=== PATIENT | female | born 1935 | race Caucasian/White ===

== ENCOUNTER 2022-06-05 16:13 | Inpatient (IN) | payer MEDICARE, OTHER ==
[~2022-06-05] VITALS: Ht 154.9 cm; Wt 55.1 kg
[2022-06-05] MEDS ORDERED: MELATONIN 3 MG TABLET PO PRN (16:30)
[2022-06-05] MEDS ORDERED: MILK OF MAGNESIA 400 MG/5 ML 30 ML UDC PO PRN (16:30)
[2022-06-05] MEDS ORDERED: ACETAMINOPHEN 325 MG TABLET PO PRN (16:30)
[2022-06-05] MEDS ORDERED: polyethylene glycoL POWDER 17 GM (MIRALAX) PACK PO PRN (16:30)
[2022-06-05] MEDS ORDERED: ANTACID SUSP 30 ML UDC (MYLANTA) PO PRN (16:30)
[2022-06-05] MEDS ORDERED: ONDANSETRON 4 MG/2 ML (SDV) Z0FRAN IV PRN (16:30)
--- OUTSIDE RECORDS SUMMARY | 2022-06-05 17:51 | XMS REPORT | Clinical Summary ---
Author Author [facility] Organization [facility] Address Unknown Phone Unavailable Care Team Providers Care Plant Safety Leader Name Role Phone PCP Unavailable Allergies Comments Active Allergy Reactions Severity Noted Date Niacin Preparations 12/06/2015 Penicillins Rash Low 12/06/2015 Medications End Date Status Medication Sig Dispensed Refills Start Date Active alendronate (FOSAMAX) 70 Take 1 tablet 12 tablet 3 MG tabletIndications: (70 mg total) 7 Osteopenia by mouth every 7 (seven) days. Take pill first thing in the morning with a full glass of water. 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, unspecified laterality (HCC) Active pravastatin (PRAVACHOL) TAKE 1 TABLET 90 tablet 3 20 MG tabletIndications: DAILY 8 Hyperlipidemia, unspecified hyperlipidemia type Active warfarin (COUMADIN) 5 MG Take 1 tablet 12 tablet 0 tabletIndications: Long once a week 9 term current use of anticoagulant therapy Active Problems Problem Noted Date Interstitial fibrosis 06/04/2017 Overview: [place] to be postinflammatory, monitored by separator operator shellfish meats at Pulmonary embolism 12/02/2016 Osteopenia 07/05/2016 intermediate designer current use of anticoagulant therapy 12/18 Overview: IMO Replacement Update Hyperlipidemia 12/09/2015 Deep venous thrombosis 12/09/2015 Overview: Right lower extremity DVT 2 , left lower extremity DVT 1 Impaired fasting glucose 12/09/2015 Allergic rhinitis 12/09/2015 Immunizations Name Administration Dates Next Due Pneumococcal Conjugate 07/09/2015 13-Valent Pneumococcal 01/24/2011 Polysaccharide 23-Valent Zoster,live 12/07/2016 Family History Medical History Relation Name Comments Diabetes Brother Hyperlipidemia Brother Hypertension Brother Diabetes Father Relation Name Status Comments Brother Father Social History Date Tobacco Use Types Packs/Day Years Used Smoking Tobacco: Never Smokeless Tobacco: Never Comments Alcohol Use Standard Drinks/Week No 0 (1 standard drink = 0.6 o z pure alcohol) Sex Assigned at Date Recorded Not on file Last Filed Vital Signs Reading Time Taken Comments Vital Sign 120/76 06/04/2017 9:53 AM LABEL STAMPER Blood Pressure 82 06/04/2017 9:53 AM LABEL STAMPER Pulse 36.6 C (97.9 F) 06/04/2017 9:53 AM LABEL STAMPER Temperature 18 12/02/2016 1:09 PM CDT Respiratory Rate 95% 06/04/2017 9:53 AM LABEL STAMPER Oxygen Saturation - - Inhaled Oxygen Concentration 64 kg (141 lb) 06/04/2017 9:53 AM LABEL STAMPER Weight 154.9 cm (5' 1") 06/04/2017 9:53 AM LABEL STAMPER Height 26.64 06/04/2017 9:53 AM LABEL STAMPER Body Mass Index Plan of Treatment Health Maintenance Due Date Last Done Comments Td/Tdap# 1935 COVID-19 Vaccine (#1) 06/28/1936 Zoster Vaccine# (2 of 3) 02/01/2017 12/07/2016 Depression Screening 05/05/2017 05/05/2016 PHQ-9 # Fall Risk Assessment # 06/04/2018 06/04/2017 Osteoporosis Screening 07/03/2018 07/03/2016, 07/03/2016 Influenza Vaccine (#1) 2022 02/09/2017, 01/09/2016 Advance Care Planning 04/26/2022 Conversation# Medicare Annual Wellness 04/26/2022 06/04/2017, 06/04/2017, 06/04/2017, Additional history exists Social Determinants of 04/26/2022 Health# Pneumococcal Vaccine: 65+ Completed 07/09/2015, Years 01/24/2011 Results Not on filefrom Last 3 Months Insurance Type Payer Benefit Subscriber ID Effective Phone Address Plan / Dates Group MEDICARE REPLACEMENT PLAN BC OUT OF [id number] 2015-P [phone] [id number] [place] [address] Loren Maria Personal/F Self [id number] [place]) [place] [id number] Loren Maria Personal/F Self 1935 [id number] [place] ([place]) [place] [id number]
--- OUTSIDE RECORDS SUMMARY | 2022-06-05 17:51 | XMS REPORT | Clinical Summary ---
Author Author [facility] Organization [facility] Address Unknown Phone Unavailable Care Team Providers Care Boiler Fitter Name Role Phone Valentino Guzman MD Unavailable Unavailable Unknown, Unknown Unavailable Unavailable Jr Villagomez MD Unavailable Colten Isabel MD PCP Source Comments Some departments are not documenting in the electronic medical record. If you d o not see the information that you expected, contact Release of Information in [facility] Information Management department at [phone] for further assistan ce in locating additional records.[facility] Allergies Comments Active Allergy Reactions Severity Noted Date Aspirin EDEMA Medium 03/04/2015 Niacin REDNESS, Medium 03/04/2015 EDEMA Medications End Date Status Medication Sig Dispensed Refills Start Date Active warfarin (COUMADIN) 3 mg Take 3 mg by 0 tablet mouth daily. 5mg 3day week 3mg 2days week Active pravastatin (PRAVACHOL) Take 20 mg by 0 20 mg tablet mouth daily. Active cyanocobalamin (VITAMIN Inject 1,000 0 B-12, RUBRAMIN) 1,000 mcg to mcg/mL injection area(s) as directed every 30 days. Active ipratropium (ATROVENT) Apply 2 30 mL 11 0.03 % nasal spray sprays to 8 each nostril as directed every 12 hours as needed. Active fluticasone (FLONASE Apply two 48 g 3 05/11 ALLERGY RELIEF) 50 sprays to 9 mcg/actuation nasal spray each nostril as directed daily. Shake bottle gently before using. Active famotidine (PEPCID) 40 mg Take one 180 tablet 0 tabletIndications: GERD tablet by 1 mouth daily. Indications: GERD Active azelastine (ASTELIN) 137 Apply two 30 mL 3 1 0/26/202 mcg (0.1 %) nasal sprays to 1 sprayIndications: each nostril Post-nasal drainage as directed twice daily. Use in each nostril as directed Active albuterol sulfate (PROAIR Inhale two 8.5 g 11 HFA) 90 mcg/actuation HFA puffs by 1 aerosol mouth into inhalerIndications: ILD the lungs (interstitial lung every 6 hours disease) ([facility]) as needed for Wheezing or Shortness of Breath. Shake well before use. Active Problems Problem Noted Date Chronic cough 02/19/2021 Overview: Onset post-COVID Last Assessment & Plan: Formatting of t his note might be different from the original. - persistent sinus drainage with clear sputum production - continue Flonase and Astelin twice da kasey - send to ENT for further evaluation of post-nasal drainage - see ILD Pseudophakia, right eye 07/09/2016 Overview: Phaco/IOL OD ASC 07/09/2015 Last Assessment & Plan: Formatting of t his note is different from the original. Good vision and clinical appearance. Gi ve MRx. 3 months. Next Visit: MRx x OCT Nerve OCT Mac IOP x Pach Dilate x Glare B-scan HVF Stereo Disc Photos Pseudophakia of left eye 06/18/2016 Overview: [facility] - 06/17/16 - PCB00 Last Assessment & Plan: Formatting of t his note might be different from the original. Good vision and clinical appearance. D/ C shield and restrictions. Decrease prenisolone to bid. Scheduled for phaco /IOL OD 2 weeks. Reviewed procedure and risks. She understands and desires procedure. ILD (interstitial lung disease) 04/24/2015 Last Assessment & Plan: Formatting of t his note might be different from the original. 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 VIsually significant OS>OD, BAT OS 20/1 250 today Discussed risks and benefits of surgery with the patient who would like to proceed. We will schedule for OS first follow by OD. Distance target Rec: Phaco/IOL OS first topical MAC. Re viewed procedure and risks including loss of eye, loss of vision, IOL complication, inflammation and retinal swelling. She understands and d esires procedure. Surgical History Surgery Date Site/Laterality Comments VENA CAVA FILTER PLACEMENT ANKLE FRACTURE TX HX CATARACT REMOVAL 07/11/16 Right HX CATARACT REMOVAL 06/17/16 Left Medical History Medical History Date Comments High cholesterol H/O blood clots Pulmonary fibrosis (HCC) Pneumonia Seasonal allergic reaction On supplemental oxygen therapy Deep vein thrombosis (HCC) Family History Medical History Relation Name Comments COPD Brother 1 Cancer Brother 1 Pulmonary Fibrosis Brother 1 Strabismus Brother 1 Cancer Brother 2 Diabetes Brother 3 Blood Clots Mother Amblyopia Neg Hx Autoimmune Disease Neg Hx Blindness Neg Hx Cataract Neg Hx Coronary Artery Disease Neg Hx Glaucoma Neg Hx Hypertension Neg Hx Macular Degen Neg Hx Neurologic Disorder Neg Hx Retinal Detachment Neg Hx Stroke Neg Hx Thyroid Disease Neg Hx Relation Name Status Comments Brother 1 Brother 2 Brother 3 Mother Social History Date Tobacco Use Types Packs/Day Years Used Smoking Tobacco: Never Smokeless Tobacco: Never Tobacco Cessation: Counseling Given: Yes Comments Alcohol Use Standard Drinks/Week No 0 (1 standard drink = 0.6 o z pure alcohol) Sex Assigned at Date Recorded Not on file Obstetrics History Last Filed Vital Signs Reading Time Taken Comments Vital Sign 135/66 01/03/2021 8:36 AM CDT Blood Pressure 74 01/03/2021 8:36 AM CDT Pulse 36.9 C (98.4 F) 05/11/2018 10:59 AM VIDEO MACHINES MECHANIC Temperature 18 01/03/2021 8:36 AM CDT Respiratory Rate 94% 01/03/2021 8:36 AM CDT Oxygen Saturation - - Inhaled Oxygen Concentration 54.4 kg (120 lb) 05/28/2021 9:38 AM VIDEO MACHINES MECHANIC Weight 154.9 cm (5' 1") 05/28/2021 9:38 AM VIDEO MACHINES MECHANIC Height 22.67 05/28/2021 9:38 AM VIDEO MACHINES MECHANIC Body Mass Index Plan of Treatment Health Maintenance Due Date Last Done Comments MEDICARE ANNUAL WELLNESS 1935 VISIT DTAP/TDAP VACCINES (1 - 12/29/1953 Tdap) PHYSICAL (COMPREHENSIVE) 12/29/1953 EXAM OSTEOPOROSIS 12/29/2000 SCREENING/MONITORING COVID-19 VACCINE (4 - 04/21/2021 02/24/2021, Booster for Moderna 07/12/2020, series) 06/14/2020 INFLUENZA VACCINE (#1) 2021 ADVANCED CARE PLANNING 04/26/2022 DISCUSSION AND DOCUMENTATION DEPRESSION SCREENING 04/26/2022 05/28/2021 PNEUMOCOCCAL VACCINE Completed 07/09/2015, 01/24/2011 SHINGLES RECOMBINANT Completed 03/11/2018, VACCINE 10/26/2017, 12/07/2016 Results Not on filefrom Last 3 Months Insurance Type Payer Benefit Subscriber ID Effective Phone Address Plan / Dates Group Medicare BCBS ALLIE MEDICARE BCBS [id number] 2016- [phone] [address] MEDICARE Present [id number] [facility] ([place] [id number] [phone] Care Teams Start Date End Date Boiler Fitter Relationship Specialty 11/28/20 Colten Isabel MD PCP - General Internal [id number] [facility] [address] [place] [address] 03/04/15 Valentino Guzman MD Ophthalmolog [address] [place] [address] 04/01/15 Unknown, [place], 04/24/15 Jr Villagomez MD Pulmonary [address] [facility] [address] [place] [id number]
[2022-06-05 20:00] VITALS: BP 97/59
[2022-06-05] MEDS ORDERED: warFARin 3 MG (COUMADIN) TAB PO NR (20:00)
[2022-06-05 22:06] VITALS: BP 97/59
[2022-06-05] MEDS ORDERED: RT-ALBUTEROL SULF 2.5 MG/3 ML PRE-MIX VIAL INH PRN (22:30)
[2022-06-06] VITALS (7 sets, daily range): BP systolic 90–111; BP diastolic 59–68
[2022-06-06] MEDS: RT-ALBUTEROL SULF 2.5 MG/3 ML PRE-MIX VIAL INH SCH ×6 (02:31→21:56)
[2022-06-06 04:53] LABS: HEMATOCRIT 47 % (35-52); HEMOGLOBIN 15.2 g/dL (11.5-16.0); MEAN CORPUSCULAR HEMOGLOBIN 32 pg (25-34); MEAN CORPUSCULAR HGB CONC 33 g/dL (32-36); MEAN CORPUSCULAR VOLUME 98 fL (80-99); MEAN PLATELET VOLUME 10.1 fL (9.0-12.2); PLATELET COUNT 194 10^3/uL (130-400); WHITE BLOOD COUNT 6.4 10^3/uL (4.3-11.0)
[2022-06-06 05:05] LABS: INR 2.2 (0.8-1.4); PROTHROMBIN TIME PATIENT 24.8 SEC (12.2-14.7)
[2022-06-06 05:11] LABS: CALCIUM 8.8 MG/DL (8.5-10.1)
[2022-06-06 05:15] LABS: CREATININE SERUM 1.39 MG/DL (0.60-1.30)
[2022-06-06] MEDS: FUROSEMIDE 40 MG/4 ML INJ (LASIX) IVP SCH (06:54)
--- NOTE | 2022-06-06 08:46 | Physical Therapy Evaluation ---
PT Evaluation-General Medical Diagnosis Admission Date Jun 05, 2022 at 17:45 Medical Diagnosis: SOB and weakness Onset Date: Jun 05, 2022 Therapy Diagnosis Therapy Diagnosis: impaired mobility, strength Precautions Precautions/Isolations: Standard Precautions Referral Physician: [place] Reason for Referral: Evaluation/Treatment Medical History Reviewed History: Yes Social History Home: Single Level Current Living Status: Spouse Entry Into Home: Level Entry Prior Prior Level of Function SCALE: Activities may be completed with or without assistive devices. 6-Lxstzylfyw-vfhzhao completes the activity by him/herself with no assistance from a helper. 5-Set-up or Clean-up Assistance-helper sets up or cleans up; patient completes activity. Stuart assists only prior to or following the activity. 4-Supervision or Touching Assistance-helper provides verbal cues and/or touching/steadying and/or contact guard assistance as patient completes activity. Assistance may be provided throughout the activity or intermittently. 3-Partial/Moderate Assistance-helper does LESS THAN HALF the effort. Stuart lifts, holds or supports trunk or limbs, but provides less than half the effort. 2-Substantial/Maximal Assistance-helper does MORE THAN HALF the effort. Stuart lifts or holds trunk or limbs and provides more than half the effort. 2-Nwsqqgyic-ioibnw does ALL the effort. Patient does none of the effort to complete the activity. Or, the assistance of 2 or more helpers is required for the patient to complete the activity. If activity was not attempted, code reason: 7-Patient Refused. 9-Not Applicable-not attempted and the patient did not perform the activity be fore the current illness, exacerbation or injury. 10-Not Attempted due to Environmental Limitations-(lack of equipment, weather restraints, etc.). 88-Not Attempted due to Medical Conditions or Safety Concerns. Bed Mobility: 6 Transfers (B,C,W/C): 6 Gait: 6 Indoor Mobility (Ambulation): Independent Prior Devices Use: Walker Patient states she was only walking 10-15' with a rolling walker with some di fficulty PT Evaluation-Current Subjective Patient in bed pre tx, agrees to PT, has no complaints of pain at rest. Pt/Family Goals to be independent at home Objective Patient Orientation: Person, Place, Situation Attachments: Oxygen ROM/Strength ROM Lower Extremities WNL Strength Lower Extremities LLE (hip flexion 3+/5, knee flexion 4/5, knee extension 4/5, dorsiflexion 4/5), RLE (hip flexion 3+/5, knee flexion 4/5, knee extension 4/5, dorsiflexion 4/5) Sensory Vision: Functional Hearing: Functional Sensation Right Lower Extremit: Intact Sensation Left Lower Extremity: Intact Transfers Roll Left to Right (QC): 6 Lying to Sitting/Side of Bed(Q: 6 Sit to Stand (QC): 4 Chair/Bci-ut-Andvb Xfer(QC): 4 Gait Distance: 5' Gait Assistive Device: FWW Comments/Gait Description CGA, slightly unsteady Treatment seated BLE exercises x20 (AP, LAQ) Assessment/Needs Patient in bedside chair post tx, set up for breakfast, has nurse call, phone, tray. Patient has impaired mobility and strength. O2 was unreadable, nurse notified. Rehab Potential: Fair PT Usp Goals Usp Goals PT Usp Goals Time Frame: Jun 13, 2022 Roll Left & Right (QC): 6 Sit to Lying (QC): 6 Lying-Sitting on Side/Bed(QC): 6 Sit to Stand (QC): 6 Chair/Byp-js-Bfrhn Xfer(QC): 6 Walk 10 feet (QC): 4 PT Plan Problem List Problem List: Activity Tolerance, Functional Strength, Safety, Balance, Gait, Transfer, Bed Mobility, ROM Treatment/Plan Treatment Plan: Continue Plan of Care Treatment Plan: Education, Functional Activity Henry, Functional Strength, Gait, Safety, Therapeutic Exercise, Transfers Treatment Duration: Jun 13, 2022 Frequency: 6 times per week Estimated Hrs Per Day: .25 hour per day Patient and/or Family Agrees t: Yes Safety Risks/Education Patient Education: Gait Training, Transfer Techniques, Correct Positioning, Safety Issues Teaching Recipient: Patient Teaching Methods: Demonstration, Discussion Response to Teaching: Reinforcement Needed Discharge Recommendations Plan Patient will perform bed mobility and transfer training, balance and endurance training, functional strengthening, gait training, and education. Therapy Discharge Recommendati: Home & Family, Post Acute PT Time Time In: 819 Time Out: 832 DATE: Jun 06, 2022 Total Billed Treatment Time: 13 Total Billed Treatment 1 visit VAMSI OLVERA PT Jun 06, 2022 08:46
--- NOTE | 2022-06-06 09:57 | History & Physical-Hospitalist ---
History of Present Illness HPI/Chief Complaint Patient is an 86-year-old female with past history of pulmonary fibrosis, multiple DVTs with IVC filter placement, long COVID who presented to the emergency department due to shortness of breath. She reports she had COVID 2 years ago and has suffered with respiratory symptoms since then which complicated her pulmonary fibrosis. She wears 4 L of oxygen at baseline. Over the past couple of weeks that she has noticed lower extremity edema and worsening shortness of breath. She decided to seek evaluation in the emergency room yesterday as it was not getting better. She was found to have an elevated BNP and findings concerning for CHF. She denies any history of CHF. She was admitted here for further cardiac work-up. She states that she has urinated quite a bit since receiving Lasix in the ER yesterday and just received Lasix this morning and feels like she has to urinate again. Source: patient Date Seen 06/06/22 Time Seen by a Provider: 08:30 Attending Physician PCP Admitting Physician: Kimmy Maurer MD Attending Physician: Kimmy Maurer MD Referring Physician Date of Admission Jun 05, 2022 at 17:45 Home Medications & Allergies Home Medications Reviewed patient Home Medication Reconciliation performed by pharmacy medication reconciliations in flight technician and/or nursing. Patients Allergies have been reviewed. Allergies Allergies Coded Allergies Penicillins (Verified Allergy, Unknown, 06/05/22) Past Fuvlqst-Ftctzt-Ygnkrt Hx Patient Social History Marrital Status: Employed/Student: retired Tobacco Use?: No Use of E-Cig and/or Vaping dev: No Substance use?: No Alcohol Use?: No Pt feels they are or have been: No Immunizations Up To Date Date of Influenza Vaccine: Jan 24, 2022 Current Status status: No Advance Directives: Yes Advance Directive Location: Home Communicates: Verbally Primary Language: Tongan Preferred Spoken Language: Tongan Is interpretation needed?: No Sensory deficits: Vision impairment Implanted or Applied Medical D: Orthopedic hardware Past Medical History Pulmonary Fibrosis long covid, DVTs on chronic anticoagulation, and IVC filter Family Medical History Reviewed Nursing Family Hx No Pertinent Family Hx Review of Systems Constitutional: see HPI Physical Exam Physical Exam Vital Signs Vital Signs - First Documented 06/05/22 06/05/22 06/05/22 06/05/22 18:28 19:00 20:00 22:06 Temp 35.5 Pulse 80 Resp 27 B/P (MAP) 97/59 (72) Pulse Ox 92 O2 Delivery Nasal Cannula O2 Flow Rate 4.00 FiO2 40 Capillary Refill : Height, Weight, BMI Height: '" Weight: lbs. oz. kg; 24.92 BMI Method: General Appearance: No Apparent Distress Respiratory: No Accessory Muscle Use; No Crackles, No Rhonci, No Wheezing Cardiovascular: Regular Rate, Rhythm, No Murmur Gastrointestinal: Normal Bowel Sounds, Non Tender, Soft Extremity: Pedal Edema, Swelling Neurologic/Psychiatric: Alert, Oriented x3 Results Results/Procedures Labs Laboratory Tests 06/06/22 04:36 Patient resulted labs reviewed. Assessment/Plan Admission Diagnosis Preseumed new onset HF Admission Status: Inpatient Order (span 2 midnights) Reason for Inpatient Admission: see below Assessment and Plan Presumed new onset HF Elevated troponin- likely Type II PA lung extremity edema and worsening SOB Continue lasix echo ordered cardiology consulted Monitor I/Os Low Na diet Pulmonary fibrosis Long Covid Chronic Respiratory Failure MAT protocol Does not use inhalers at home Consider steroids if no improvement with this dose of lasix On 4lpm current Chronic anticoagulatioin H/o of DVT INR 2.2 Continue Warfarin DVT ppx: Warfarin KIMMY MAURER MD Jun 06, 2022 9:57 am
--- NOTE | 2022-06-06 10:54 | Consultation-Cardiology ---
HPI-Cardiology Cardiology Consultation: Date of Consultation 06/06/22 Time Seen by a Provider: 10:20 Date of Admission Attending Physician Admitting Physician Admitting Physician: Angelica Maurer MD Attending Physician: Angelica Maurer MD Consulting Physician SAVANA GONZALEZ MD, MA, FACP, FACC, FSCAI, CCDS Physician requesting consult: Dr. Maurer HPI: Chief Complaint: Reason for Card consult: Shortness of breath, elevated BNP 86 yo woman with chronic shortness of breath that has been much worse for the past 2 years after she contracted COVID-19 in 2020. She gets short of breath with mild exertion. This has been worse in the last several days and she had also been noticing leg swelling on both sides. She decided to come in to the hosp and was admitted to Dr Maurer at this hosp. She reports gen fatigue and malaise and weakness. She does not report focal weakness or seizure. She denies cp. She denies palp or syncope Review of Systems-Cardiology Review of Systems Constitutional: As described under HPI Eyes: No vision change Ears/Nose/Throat: No ear discharge, No nasal drainage, No recent hearing loss Respiratory: As described under HPI Cardiovascular: As described under HPI Gastrointestinal: No diarrhea, No nausea, No vomiting Genitourinary: No dysuria, No hematuria, No urine frequency changes Musculoskeletal: back pain (chronic), joint pain (chronic) Skin: No rash, No ulcerations Psychiatric/Neurological: As described under HPI Hematologic: No bleeding abnormalities [id number]-[id number] Hx Patient Social History Marrital Status: Employed/Student: retired Have you traveled recently?: No Alcohol Use?: No Pt feels they are or have been: No Immunizations Up To Date Date of Influenza Vaccine: Jan 24, 2022 Past Medical History PMH As described under Assessment. Family Medical History Family Medical History: She does not report fam h/o early CAD She reports fam h/o lung problems, including emphysema; doesn't know details Allergies and Home Medications Allergies Coded Allergies: Penicillins (Verified Allergy, Unknown, 06/05/22) Patient Home Medication List Home Medication List Reviewed: Yes Physical Exam-Cardiology Physical Exam Vital Signs/I&O 06/06/22 06/06/22 06/06/22 06/06/22 00:00 01:00 02:30 02:31 Pulse 72 70 Resp 22 B/P (MAP) 111/68 (82) Pulse Ox 95 95 O2 Delivery Nasal Cannula Nasal Cannula High Flow N/C O2 Flow Rate 5.00 4.00 5.00 06/06/22 06/06/22 06/06/22 06/06/22 02:35 06:46 07:00 07:41 Temp 36.0 36.4 Pulse 69 72 71 Resp 22 24 B/P (MAP) 102/61 (75) 99/61 (74) Pulse Ox 96 93 O2 Delivery High Flow N/C Nasal Cannula Nasal Cannula O2 Flow Rate 4.00 4.00 4.00 06/06/22 08:03 Pulse Ox 93 O2 Delivery High Flow N/C O2 Flow Rate 4.00 06/06/22 00:00 Intake Total 200 ml Output Total 300 ml Balance -100 ml Capillary Refill : Constitutional: AAO x 3, well-developed, other (thin and frail) HEENT: PERRL, EOMI, hearing is well preserved Neck: carotid pulses are 2 + bilaterally, with good upstrokes Respiratory: No accessory muscle use; chest expansion is symmetric, chest is bilaterally symmetric, other (fair air entry bilaterally) Cardiovascular: regular rate-rhythm, S1 and S2, systolic murmur (soft KAPIL at card base) Gastrointestinal: No tender; soft; No guarding, No rebound; audible bowel sounds Extremities: No clubbing, No cyanosis, No significant edema Neurologic/Psychiatric: oriented x 3, other (moves all limbs equally) Skin: normal color, warm/dry; No rash, No ulcerations Data Review Labs Laboratory Tests 06/05/22 18:50: Troponin I 0.030H 06/06/22 04:36: White Blood Count 6.4, Red Blood Count 4.79, Hemoglobin 15.2, Hematocrit 47, Mean Corpuscular Volume 98, Mean Corpuscular Hemoglobin 32, Mean Corpuscular Hemoglobin Concent 33, Red Cell Distribution Width 13.6, Platelet Count 194, Mean Platelet Volume 10.1, Prothrombin Time 24.8H, INR Comment 2.2H, Sodium Level 140, Potassium Level 5.0, Chloride Level 106, Carbon Dioxide Level 20L, Anion Gap 14, Blood Urea Nitrogen 24H, Creatinine 1.39H, Estimat Glomerular Filtration Rate 37, BUN/Creatinine Ratio 17, Glucose Level 161H, Calcium Level 8.8 Laboratory Tests 06/06/22 04:36 A/P-Cardiology Assessment/Admission Diagnosis Shortness of breath, multifactorial - CHF of undetermined etiology - Ch resp failure due to pulm fibrosis / emphysema; ?acute exac due to lower resp tract infection - Long Covid H/o PAF - on warfarin anticoag. INR therapeutic (2.2) on 06/06/22 Minimal troponin elev - likely type 2 SC due to transient hypoxia Discussion and Recomendations * Diuretics * Echo to eval EF and wall motion and valve function * Monitor labs * Pulm / Covid issues being managed by the Hosp SAVANA Hernandez MD FACP FACC CCDS Jun 06, 2022 10:54
[2022-06-06] MEDS ORDERED: ATEN50TA PO (13:06)
[2022-06-06] MEDS ORDERED: WARF-48 PO (13:10)
[2022-06-06] MEDS ORDERED: WARF3TAB56 PO (13:10)
[2022-06-06] MEDS ORDERED: PRAVASTATIN 20 MG PO (13:10)
[2022-06-06] MEDS: warFARin 3 MG (COUMADIN) TAB PO SCH (18:30)
[2022-06-06] MEDS: AtorvaSTATin TABLET 10 MG TABLET PO SCH (22:09)
[2022-06-07] MEDS: RT-ALBUTEROL SULF 2.5 MG/3 ML PRE-MIX VIAL INH SCH ×6 (03:29→22:24)
[2022-06-07 04:00] VITALS: BP 101/62
[2022-06-07 04:22] LABS: HEMATOCRIT 41 % (35-52); HEMOGLOBIN 13.5 g/dL (11.5-16.0); MEAN CORPUSCULAR HEMOGLOBIN 32 pg (25-34); MEAN CORPUSCULAR HGB CONC 33 g/dL (32-36); MEAN CORPUSCULAR VOLUME 99 fL (80-99); MEAN PLATELET VOLUME 10.1 fL (9.0-12.2); PLATELET COUNT 181 10^3/uL (130-400); WHITE BLOOD COUNT 11.3 10^3/uL (4.3-11.0)
[2022-06-07 04:35] LABS: POTASSIUM 4.7 MMOL/L (3.6-5.0)
[2022-06-07 04:36] LABS: CALCIUM 8.7 MG/DL (8.5-10.1)
[2022-06-07 04:40] LABS: CREATININE SERUM 1.44 MG/DL (0.60-1.30)
[2022-06-07 07:51] VITALS: BP 114/69
--- NOTE | 2022-06-07 08:35 | Progress Note - Hospitalist ---
Subjective HPI/CC On Admission Date Seen by Provider: Jun 07, 2022 Patient is an 86-year-old female with past history of pulmonary fibrosis, multiple DVTs with IVC filter placement, long COVID who presented to the emergency department due to shortness of breath. She reports she had COVID 2 years ago and has suffered with respiratory symptoms since then which complicated her pulmonary fibrosis. She wears 4 L of oxygen at baseline. Over the past couple of weeks that she has noticed lower extremity edema and worsening shortness of breath. She decided to seek evaluation in the emergency room yesterday as it was not getting better. She was found to have an elevated BNP and findings concerning for CHF. She denies any history of CHF. She was admitted here for further cardiac work-up. She states that she has urinated quite a bit since receiving Lasix in the ER yesterday and just received Lasix this morning and feels like she has to urinate again. Subjective/Events-last exam Pt reports feeling about the same as yesterday. No specific complaints. Some improvement in CRISTI but still dyspneic. Discussed echo results and plan for CT chest been renal function amenable to contrast. Objective Exam Vital Signs Vital Signs Date Time Temp Pulse Resp B/P (MAP) Pulse Ox O2 Delivery O2 Flow Rate FiO2 06/07/22 07:51 35.7 78 26 114/69 (84) 92 High Flow N/C 5.00 06/05/22 22:06 40 Capillary Refill : General Appearance: No Apparent Distress, Chronically ill, Thin Respiratory: Lungs Clear, No Accessory Muscle Use Cardiovascular: Regular Rate, Rhythm, No Murmur Extremity: Swelling (nonpitting bilateral lower extremities) Neurologic/Psychiatric: Alert, Oriented x3 Results/Procedures Lab Laboratory Tests 06/07/22 04:15 Patient resulted labs reviewed. Assessment/Plan Assessment and Plan Assess & Plan/Chief Complaint pHTN Elevated troponin- likely Type II DC HLD Echo reveals PA pressure of [address] chest in AM cardiology consulted, appreciate recs Monitor I/Os Low Na diet Pulm consult in AM Pulmonary fibrosis Long Covid Chronic Respiratory Failure MAT protocol Does not use inhalers at home On 5lpm currently, up from baseline of 4lpm Will add solumedrol today and monitor response Chronic anticoagulatioin H/o of DVT INR therapeutic Continue Warfarin DVT ppx: Warfarin KIMMY HUTCHINS MD Jun 07, 2022 08:35
[2022-06-07 12:08] VITALS: BP 110/66
[2022-06-07] MEDS: methylPREDNISolone 125 MG (Solu-MEDROL) VIAL IVP SCH (12:08)
--- NOTE | 2022-06-07 13:44 | Progress Note - Cardiology ---
Cardiology SOAP Progress Note Subjective: Shortness of breath modestly improved but still present Gen weakness and malaise unchanged No focal weakness No cp or palp or syncope No n/v/d Objective: I&O/Vital Signs 06/07/22 06/07/22 06/07/22 06/07/22 04:00 07:05 07:51 08:00 Temp 36.2 35.7 Pulse 64 73 78 Resp 23 26 B/P (MAP) 101/62 (75) 114/69 (84) Pulse Ox 95 92 94 O2 Delivery High Flow N/C High Flow N/C Nasal Cannula O2 Flow Rate 5.00 5.00 5.00 06/07/22 06/07/22 06/07/22 10:17 12:08 13:07 Temp 36.4 Pulse 82 86 Resp 23 B/P (MAP) 110/66 (81) Pulse Ox 94 92 O2 Delivery Nasal Cannula High Flow N/C O2 Flow Rate 5.00 5.00 06/07/22 00:00 Intake Total 1297 ml Balance 1297 ml Constitutional: AAO x 3, well-developed, other (thin and frail) Respiratory: No accessory muscle use; chest expansion is symmetric, chest is bilaterally symmetric, other (fair air entry bilaterally) Cardiovascular: regular rate-rhythm, S1 and S2, systolic murmur (soft KAPIL at card base) Gastrointestional: No tender; soft; No guarding, No rebound; audible bowel sounds Extremities: No clubbing, No cyanosis, No significant edema Neurologic/Psychiatric: oriented x 3, other (moves all limbs equally) Skin: normal color, warm/dry; No rash, No ulcerations Results/Procedures: Labs Laboratory Tests 06/07/22 04:15: White Blood Count 11.3H, Red Blood Count 4.18, Hemoglobin 13.5, Hematocrit 41, Mean Corpuscular Volume 99, Mean Corpuscular Hemoglobin 32, Mean Corpuscular Hemoglobin Concent 33, Red Cell Distribution Width 13.8, Platelet Count 181, Mean Platelet Volume 10.1, Sodium Level 142, Potassium Level 4.7, Chloride Level 108H, Carbon Dioxide Level 22, Anion Gap 12, Blood Urea Nitrogen 36H, Creatinine 1.44H, Estimat Glomerular Filtration Rate 35, BUN/Creatinine Ratio 25, Glucose Level 150H, Calcium Level 8.7 Laboratory Tests 06/06/22 04:36 06/07/22 04:15 A/P: Assessment: Shortness of breath, multifactorial - Cor pulmonale and severe pulmonary hypertension of undetermined etiology - Ch resp failure due to pulm fibrosis / emphysema; ?acute exac due to lower resp tract infection - Long Covid Echo on 06/06/22: LVEF 70-75%, marked enlargement of RV with evidence of RV pressure and volume overload, severe pulm HTN with PASP 85-90 mmHg H/o PAF - on warfarin anticoag. INR therapeutic (2.2) on 06/06/22 Minimal troponin elev - likely type 2 NH due to transient hypoxia Plan: * I called Dr Maurer, patient's hospitalist, and have recommended a w/u for PE and other w/u for pulm htn and cor pummonale. Dr Maurer managing. * Monitor labs SAVANA GONZALEZ MD FACP [facility] CCDS Jun 07, 2022 13:44
[2022-06-07 15:39] VITALS: BP 104/62
[2022-06-07 20:00] VITALS: BP 101/61
[2022-06-07] MEDS: AtorvaSTATin TABLET 10 MG TABLET PO SCH (20:50)
[2022-06-07] MEDS: warFARin 3 MG (COUMADIN) TAB PO SCH (20:50)
[2022-06-07 23:19] VITALS: BP 101/61
[2022-06-08] VITALS (7 sets, daily range): BP systolic 93–121; BP diastolic 55–78
[2022-06-08] MEDS: methylPREDNISolone 125 MG (Solu-MEDROL) VIAL IVP SCH ×5 (00:07→23:31)
[2022-06-08] MEDS: RT-ALBUTEROL SULF 2.5 MG/3 ML PRE-MIX VIAL INH SCH ×5 (02:34→21:53)
[2022-06-08 05:12] LABS: HEMATOCRIT 43 % (35-52); HEMOGLOBIN 13.7 g/dL (11.5-16.0); MEAN CORPUSCULAR HEMOGLOBIN 32 pg (25-34); MEAN CORPUSCULAR HGB CONC 32 g/dL (32-36); MEAN CORPUSCULAR VOLUME 100 fL (80-99); MEAN PLATELET VOLUME 9.9 fL (9.0-12.2); PLATELET COUNT 180 10^3/uL (130-400); WHITE BLOOD COUNT 8.4 10^3/uL (4.3-11.0)
[2022-06-08 05:21] LABS: INR 2.8 (0.8-1.4); PROTHROMBIN TIME PATIENT 29.9 SEC (12.2-14.7)
[2022-06-08 05:27] LABS: POTASSIUM 4.8 MMOL/L (3.6-5.0)
[2022-06-08 05:28] LABS: CALCIUM 8.5 MG/DL (8.5-10.1)
[2022-06-08 05:33] LABS: CREATININE SERUM 1.54 MG/DL (0.60-1.30)
--- NOTE | 2022-06-08 09:04 | Physical Therapy Progress Note ---
Therapy Progress Note Patient declined PT on this date due to increase SOA with minimal exertion. RN confirms. PT will attempt tomorrow morning. 1 ref KERRY MADRID PT Jun 08, 2022 09:04
[2022-06-08] MEDS ORDERED: VITC1CAP PO (10:57)
[2022-06-08] MEDS ORDERED: PRAV20TA3 PO (10:57)
--- NOTE | 2022-06-08 12:07 | Cardiology Progress Note ---
Subjective Date Seen by Provider: Jun 08, 2022 Time Seen by Provider: 10:15 Subjective/Events-last exam Patient is sitting up in bed, continues to have dyspnea. Denies any chest pain Objective-Cardiology Exam Last Set of Vital Signs Vital Signs 06/07/22 06/08/22 23:19 12:00 Temp 36.3 Pulse 90 Resp 30 B/P (MAP) 108/60 (76) Pulse Ox 96 O2 Delivery Nasal Cannula O2 Flow Rate 5.00 FiO2 40 I&O Intake and Output 06/08/22 00:00 Intake Total 950 ml Output Total 600 ml Balance 350 ml Intake Oral 950 ml Output Urine Total 600 ml # Voids 1 # Bowel Movements 1 General: Alert, Oriented X3 Neck: Supple Lungs: Other (diminished breath sounds bibasilarly) Heart: Regular Rate Abdomen: Normal Bowel Sounds, Soft Neuro: Cranial Nerves 3-12 NL Psych/Mental Status: Mental Status NL, Mood NL Results Lab Laboratory Tests 06/08/22 04:55 A/P-Cardiology Admission Diagnosis Shortness of breath Pulmonary fibrosis PAF Assessment/Plan Shortness of breath, multifactorial Cor pulmonale and severe pulmonary hypertension of undetermined etiology Chronic resp failure due to pulm fibrosis / emphysema, likely secondary to acute exac due to lower respiratory tract infection Long Covid Echo on 06/06/22: LVEF 70-75%, marked enlargement of RV with evidence of RV pressure and volume overload, severe pulm HTN with PASP 85-90 mmHg H/o PAF, on warfarin anticoag. INR therapeutic Minimal troponin elevation, likely type 2 LA due to transient hypoxia Patient was seen and evaluated with Magalys, examination performed, management plan was discussed, agree with the current scribed note, I made few changes to the note using Italic font Patient was seen at bedside, laying down comfortably, feeling better Has history of paroxysmal atrial fibrillation maintained on Coumadin History of cor pulmonale with severe pulmonary hypertension Cardiac status at this time is stable, continue to monitor blood pressure, monitor INR. MAGALYS WARD Jun 08, 2022 12:07 MILTON WALDEN MD Jun 08, 2022 12:19
[2022-06-08] MEDS: FUROSEMIDE 40 MG/4 ML INJ (LASIX) IVP SCH ×2 (12:30→18:08)
--- NOTE | 2022-06-08 14:51 | Occupational Therapy Eval ---
OT Evaluation-General/PLF Medical Diagnosis Admission Date Jun 05, 2022 at 17:45 Medical Diagnosis: SOB and weakness Onset Date: Jun 05, 2022 Therapy Diagnosis Therapy Diagnosis: weakness/SOA Precautions Precautions/Isolations: Standard Precautions Weight Bear Status Weight Bearing Restriction: Weight Bearing/Tolerated Referral Physician: [place] Referral Reason: Activity Tolerance, Evaluation/Treatment, Strengthening/ROM Medical History Current History Patient is an 86-year-old female with past history of pulmonary fibrosis, multiple DVTs with IVC filter placement, long COVID who presented to the emergency department due to shortness of breath. She reports she had COVID 2 years ago and has suffered with respiratory symptoms since then which complicated her pulmonary fibrosis. She wears 4 L of oxygen at baseline. Over the past couple of weeks that she has noticed lower extremity edema and worsening shortness of breath. She decided to seek evaluation in the emergency room as it was not getting better. She was found to have an elevated BNP and findings concerning for CHF. She denies any history of CHF. She was admitted here for further cardiac work-up. Social History Home: Single Level Current Living Status: Spouse Entry Into Home: Level Entry ADL-Prior Level of Function SCALE: Activities may be completed with or without assistive devices. 3-Wdvowqturv-bfbczun completes the activity by him/herself with no assistance from a helper. 5-Set-up or Clean-up Assistance-helper sets up or cleans up; patient completes activity. [place] assists only prior to or following the activity. 4-Supervision or Touching Assistance-helper provides verbal cues and/or touching/steadying and/or contact guard assistance as patient completes activity. Assistance may be provided throughout the activity or intermittently. 3-Partial/Moderate Assistance-helper does LESS THAN HALF the effort. [place] lifts, holds or supports trunk or limbs, but provides less than half the effort. 2-Substantial/Maximal Assistance-helper does MORE THAN HALF the effort. [place] lifts or holds trunk or limbs and provides more than half the effort. 6-Rnlqqaaap-hhyjbo does ALL the effort. Patient does none of the effort to complete the activity. Or, the assistance of 2 or more helpers is required for the patient to complete the activity. If activity was not attempted, code reason: 7-Patient Refused. 9-Not Applicable-not attempted and the patient did not perform the activity before the current illness, exacerbation or injury. 10-Not Attempted due to Environmental Limitations-(lack of equipment, weather restraints, etc.). 88-Not Attempted due to Medical Conditions or Safety Concerns. Self Care: Independent Functional Cognition: Independent DME/Equipment Comments wheelchair OT Current Status Subjective UP on BSC 02 88-84% 4 liters NC Mental Status/Objective Patient Orientation: Person, Place, Time, Situation Attachments: IV, Oxygen Current Glasses/Contacts: Yes Upper Extremity ROM BUE ROM/Strength WFLS, strength diminishes and fatigue ADL-Treatment ADL-Current toileting Eating (QC): 5 Oral Hygiene (QC): 5 Shower/Bathe Self (QC): 88 Upper Body Dressing (QC): 3 Lower Body Dressing (QC): 2 On/Off Footwear (QC): 2 Toileting Hygiene (QC): 2 Education OT Patient Education: Disease process, Exercise program, Modified ADL techniques, Progress toward Goal/Update tx plan, Purpose of tx/functional activities, Reviewed precautions, Rehab process, Safety issues, Transfer techniques, Use of adapted equipment Teaching Recipient: Patient, Family Teaching Methods: Demonstration, Discussion Response to Teaching: Verbalize Understanding, Reinforcement Needed OT Cook Helper Preserves Goals Penitentiary Goals Time Frame: Jun 20, 2022 Eating (QC): 6 Oral Hygiene (QC): 6 Toileting Hygiene (QC): 6 Shower/Bathe Self (QC): 6 Upper Body Dressing (QC): 6 Lower Body Dressing (QC): 6 On/Off Footwear (QC): 6 1=Demonstrate adherence to instructed precautions during ADL tasks. 2=Patient will verbalize/demonstrate understanding of assistive devices/modifications for ADL. 3=Patient will improve strength/tolerance for activity to enable patient to perform ADL's. OT Education/Plan Problem List/Assessment Assessment: Decreased Activ Tolerance, Decreased UE Strength, Impaired Funct Balance, Impaired Self-Care Skills Discharge Recommendations Plan/Recommendations: Continue POC Therapy Discharge Recommendati: Post Acute OT Treatment Plan/Plan of Care Treatment,Training & Education: Yes Patient would benefit from OT for education, treatment and training to promote independence in ADL's, mobility, safety and/or upper extremity function for ADL's. Plan of Care: ADL Retraining, Caregiver Training, Concurrent Therapy, Functional Mobility, Group Exercise/Act as Ind, UE Funct Exercise/Act Comment Pt transferred to bed w/ all needs met, in room Treatment Duration: Jun 20, 2022 Frequency: 3 times per week (3-5 times per week) Estimated Hrs Per Day: .25 hour per day Agreement: Yes Rehab Potential: Fair Time Start Time: 14:20 Stop Time: 14:42 DATE: Jun 08, 2022 Total Time Billed (hr/min): 22 Billed Treatment Time 1 visit, [facility] 1 22 min TEE MURRAY OT Jun 08, 2022 14:51
--- NOTE | 2022-06-08 15:55 | Pulmonary Consultation ---
History of Present Illness History of Present Illness Date Seen by Provider: Jun 08, 2022 Time Seen by Provider: 15:40 Date of Admission History of Present Illness (Tele-pulmonary Physician , consultation as per request of PCP Service provided via interactive audio and video telecommunications [employer] system to a patient admitted to [facility]. discussed with patient and her in room. Dx with pulm fibrosis ( ? 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 IPF ) - sounds progressive prosess, not on any regiment 2.Pulm HTN with RVSP 80 mmHg - patient did not aware about this DX , but given high PA pressure , it is chronic process ( with possible worsening lately given clinical signs of right heat failure) - due to exacerbating factors as chronic hypoxia , recurrent thromboembolic process , CHF 3.GINO / ? CKD - agree with steroids now - keep negative balance ( will be challenging with renal insufficiency ) - check ddimer - avoid CTCh with contrast now , but she still might be at risk for recurrent DVT ?PE despite Coumadin - check phosh and Mg - advised RN and patrient to preoxigenate prior to any activities , and keep Sao2 90-92 if possible -will need to be back to her biomedical manager/crusher foreman for re-eval and discussion if medication for pulm HTN can be tried Discussed with patient the medical regiment , goals, side effects and symptoms. All questions were answered. Plans in collaboration with bedside consultants and IM MDs. Discussed with RN to reach out if any questions or concerns will follow tomorrow Allergies and Home Medications Allergies Coded Allergies: Penicillins (Verified Allergy, Unknown, 06/05/22) Home Medications Atenolol 50 Mg Tablet, 12.5 MG PO DAILY, (Reported) TAKES (50MG) TAB Pravastatin Sodium 20 Mg Tablet, 20 MG PO HS, (Reported) Vitc/E/Zn/Copper/Lutein/Zeaxan 250 Mg-200 Capsule, 1 EACH PO 1200, (Reported) Warfarin Sodium 5 Mg Tablet, 5 MG PO WED @1999, (Reported) Warfarin Sodium 3 Mg Tablet, 3 MG PO [place],MO,TU,WE,TH,SA @1999, (Reported) Past Medical/Social/Family Hx Patient Social History Marrital Status: Employed/Student: retired Tobacco Use?: No Use of E-Cig and/or Vaping dev: No Substance use?: No Alcohol Use?: No Pt stated abuse/neglect: No Immunizations Up To Date Influenza Vaccine Up-to-Date: Yes; Up-to-Date Current Status status: No Advance Directives: Yes Advance Directive Location: Home Communicates: Verbally Primary Language: Vietnamese Preferred Spoken Language: Vietnamese Is interpretation needed?: No Sensory deficits: Vision impairment Implanted or Applied Medical D: Orthopedic hardware Past Medical History long covid, DVTs on chronic anticoagulation, and IVC filter Review of Systems Constitutional: see HPI Sepsis Event Evaluation Height, Weight, BMI Height: '" Weight: lbs. oz. kg; 23.88 BMI Method: Exam Exam Patient acknowledged, consented, and participated in this virtual visit which was conducted using real time audio/video Vital Signs Date Time Temp Pulse Resp B/P (MAP) Pulse Ox O2 Delivery O2 Flow Rate FiO2 06/08/22 14:46 92 High Flow N/C 4.00 06/08/22 12:51 98 06/08/22 12:00 36.3 90 30 108/60 (76) 96 Nasal Cannula 5.00 06/08/22 08:00 86 27 108/60 (76) 93 Nasal Cannula 5.00 06/08/22 07:24 98 High Flow N/C 4.00 06/08/22 07:17 70 06/08/22 04:00 77 24 93/77 (82) 93 Nasal Cannula 5.00 06/08/22 03:45 36.1 06/08/22 02:34 98 High Flow N/C 4.00 06/08/22 01:00 75 06/08/22 00:05 36.2 06/08/22 00:00 70 22 96/55 (69) 99 Nasal Cannula 5.00 06/07/22 23:19 36.5 84 97 40 06/07/22 22:24 97 High Flow N/C 5.00 06/07/22 20:00 87 18 101/61 (74) 93 High Flow N/C 4.00 06/07/22 19:45 36.1 06/07/22 19:45 94 Nasal Cannula 5.00 06/07/22 19:00 85 06/07/22 18:51 93 High Flow N/C 4.00 06/07/22 18:45 94 High Flow N/C 5.00 I & O 06/08/22 07:00 Intake Total 900 ml Output Total 700 ml Balance 200 ml Height & Weight Height: '" Weight: lbs. oz. kg; 23.88 BMI Method: General Appearance: No Apparent Distress, Chronically ill, Thin Respiratory: Lungs Clear, No Accessory Muscle Use Cardiovascular: Regular Rate, Rhythm, No Murmur Extremity: Swelling (nonpitting bilateral lower extremities) Neurologic/Psychiatric: Alert, Oriented x3 Results Lab Laboratory Tests 06/07/22 04:15 06/08/22 04:55 Assessment/Plan Assessment/Plan 1 LUIS MIGUEL DE LA CRUZ MD Jun 08, 2022 15:55
--- NOTE | 2022-06-08 17:39 | Progress Note - Hospitalist ---
Subjective HPI/CC On Admission Date Seen by Provider: Jun 08, 2022 Time Seen by Provider: 10:25 Patient is an 86-year-old female with past history of pulmonary fibrosis, multiple DVTs with IVC filter placement, long COVID who presented to the emergency department due to shortness of breath. She reports she had COVID 2 years ago and has suffered with respiratory symptoms since then which complicated her pulmonary fibrosis. She wears 4 L of oxygen at baseline. Over the past couple of weeks that she has noticed lower extremity edema and worsening shortness of breath. She decided to seek evaluation in the emergency room yesterday as it was not getting better. She was found to have an elevated BNP and findings concerning for CHF. She denies any history of CHF. She was admitted here for further cardiac work-up. She states that she has urinated quite a bit since receiving Lasix in the ER yesterday and just received Lasix this morning and feels like she has to urinate again. Subjective/Events-last exam She is short of breath with activity. She has no other complaints. Objective Exam Vital Signs Vital Signs Date Time Temp Pulse Resp B/P (MAP) Pulse Ox O2 Delivery O2 Flow Rate FiO2 06/08/22 14:46 92 High Flow N/C 4.00 06/08/22 12:51 98 06/08/22 12:00 36.3 30 108/60 (76) 06/07/22 23:19 40 Capillary Refill : General Appearance: No Apparent Distress, Chronically ill Respiratory: No Respiratory Distress, Decreased Breath Sounds Cardiovascular: Regular Rate, Rhythm, No Murmur Gastrointestinal: Normal Bowel Sounds, Soft Extremity: Normal Inspection, Pedal Edema Neurologic/Psychiatric: Alert, Normal Mood/Affect Skin: Normal Color, Warm/Dry Results/Procedures Lab Laboratory Tests 06/08/22 04:55 Patient resulted labs reviewed. Assessment/Plan Assessment and Plan Assess & Plan/Chief Complaint pHTN Pulmonary fibrosis Long COVID Acute on chronic respiratory failure with hypoxia Elevated troponin HLD Echo with severe pulmonary hypertension Lasix Steroids MAT protocol Pulmonary consulted Cardiology following Chronic anticoagulatioin H/o of DVT INR therapeutic Continue Warfarin DVT ppx: already receiving therapeutic anticoagulation Diagnosis/Problems Diagnosis/Problems (1) Pulmonary hypertension Status: Acute (2) Pulmonary fibrosis Status: Acute (3) Long COVID Status: Acute (4) Acute on chronic respiratory failure with hypoxia Status: Acute (5) Elevated troponin Status: Acute (6) CHF (congestive heart failure) Status: Acute (7) Anticoagulated on warfarin Status: Chronic (8) History of DVT (deep vein thrombosis) Status: Chronic ELENO HENDRIX MD Jun 08, 2022 17:39
[2022-06-08] MEDS: warFARin 3 MG (COUMADIN) TAB PO SCH (18:08)
[2022-06-08] MEDS: AtorvaSTATin TABLET 10 MG TABLET PO SCH (21:36)
[2022-06-09] VITALS: BP 109/67
[2022-06-09] MEDS: RT-ALBUTEROL SULF 2.5 MG/3 ML PRE-MIX VIAL INH SCH ×6 (02:45→21:12)
[2022-06-09 04:13] VITALS: BP 109/67
[2022-06-09 04:31] LABS: HEMATOCRIT 44 % (35-52); HEMOGLOBIN 14.4 g/dL (11.5-16.0); MEAN CORPUSCULAR HEMOGLOBIN 32 pg (25-34); MEAN CORPUSCULAR HGB CONC 32 g/dL (32-36); MEAN CORPUSCULAR VOLUME 98 fL (80-99); MEAN PLATELET VOLUME 10.1 fL (9.0-12.2); PLATELET COUNT 184 10^3/uL (130-400); WHITE BLOOD COUNT 11.8 10^3/uL (4.3-11.0)
[2022-06-09 04:39] LABS: ALBUMIN 3.3 GM/DL (3.2-4.5)
[2022-06-09 04:40] LABS: POTASSIUM 4.2 MMOL/L (3.6-5.0)
[2022-06-09 04:41] LABS: CALCIUM 8.6 MG/DL (8.5-10.1)
[2022-06-09 04:45] LABS: CREATININE SERUM 1.61 MG/DL (0.60-1.30); PHOSPHORUS 3.8 MG/DL (2.3-4.7)
[2022-06-09] MEDS: FUROSEMIDE 40 MG/4 ML INJ (LASIX) IVP SCH (06:43)
[2022-06-09] MEDS: predniSONE 20 MG TAB PO SCH (06:43)
[2022-06-09 07:16] VITALS: BP 115/69
--- NOTE | 2022-06-09 07:39 | Cardiology Progress Note ---
Subjective Date Seen by Provider: Jun 09, 2022 Time Seen by Provider: 07:37 Subjective/Events-last exam Patient is laying down in bed, feeling better today. Still on oxygen nasal cannula Review of Systems General: No Chills, No Night Sweats; Fatigue; No Malaise, No Appetite, No Other HEENT: No Head Aches, No Visual Changes, No Eye Pain, No Ear Pain, No Dysphasia, No Sinus Congestion, No Post Nasal Drip, No Sore Throat, No Other Pulmonary: Dyspnea; No Cough, No Pleuritic Chest Pain, No Other Cardiovascular: No: Chest Pain, Palpitations, Orthopnea, Paroxysmal Noc. Dyspnea, Edema, Lt Headedness, Other Objective-Cardiology Exam Last Set of Vital Signs Vital Signs 06/07/22 06/09/22 23:19 07:16 Temp 35.9 Pulse 96 Resp 18 B/P (MAP) 115/69 (84) Pulse Ox 95 O2 Delivery High Flow N/C O2 Flow Rate 8.00 FiO2 40 I&O Intake and Output 06/09/22 00:00 Intake Total 350 ml Output Total 1150 ml Balance -800 ml Intake Oral 350 ml Output Urine Total 1150 ml General: Alert, Oriented X3 Neck: Supple Lungs: Other (diminished breath sounds bibasilarly) Heart: Regular Rate Abdomen: Normal Bowel Sounds, Soft Neuro: Normal Speech, Cranial Nerves 3-12 NL Psych/Mental Status: Mental Status NL, Mood NL Results Lab Laboratory Tests 06/09/22 04:17 A/P-Cardiology Admission Diagnosis Shortness of breath Pulmonary fibrosis PAF Assessment/Plan Shortness of breath, multifactorial Cor pulmonale and severe pulmonary hypertension of undetermined etiology 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 I will repeat 2D echo and reevaluate pulmonary artery pressure H/o PAF, on warfarin anticoag. INR therapeutic Minimal troponin elevation, likely type 2 [place] due to transient hypoxia MILTON WALDEN MD Jun 09, 2022 07:38
--- NOTE | 2022-06-09 09:07 | Physical Therapy Daily Note ---
PT Daily Note-Current Subjective Patient agrees to PT. Pain Section J - Health Conditions 1. Rarely or not at all 2. Occasionally 3. Frequently 4. Almost constantly 8. Unable to answer Pain Effect on Sleep: 1 Pain Interference with Therapy: 1 Pain Interference w/Day-to-Day: 1 Mental Status Patient Orientation: Normal For Age Attachments: Oxygen (increase O2 to 8-10L prior to activity to allow patient to oxygenate) Transfers SCALE: Activities may be completed with or without assistive devices. 7-Dkojdqaefs-pssifnv completes the activity by him/herself with no assistance from a helper. 5-Set-up or Clean-up Assistance-helper sets up or cleans up; patient completes activity. [place] assists only prior to or following the activity. 4-Supervision or Touching Assistance-helper provides verbal cues and/or touching/steadying and/or contact guard assistance as patient completes activity. Assistance may be provided throughout the activity or intermittently. 3-Partial/Moderate Assistance-helper does LESS THAN HALF the effort. [place] lifts, holds or supports trunk or limbs, but provides less than half the effort. 2-Substantial/Maximal Assistance-helper does MORE THAN HALF the effort. [place] lifts or holds trunk or limbs and provides more than half the effort. 8-Mobwlumzt-wylbek does ALL the effort. Patient does none of the effort to complete the activity. Or, the assistance of 2 or more helpers is required for the patient to complete the activity. If activity was not attempted, code reason: 7-Patient Refused. 9-Not Applicable-not attempted and the patient did not perform the activity before the current illness, exacerbation or injury. 10-Not Attempted due to Environmental Limitations-(lack of equipment, weather restraints, etc.). 88-Not Attempted due to Medical Conditions or Safety Concerns. Lying to Sitting/Side of Bed(Q: 6 Sit to Stand (QC): 6 Chair/Nob-ab-Jilyq Xfer(QC): 6 Gait Training Distance: 5 steps Gait Assistive Device: None Assessment Patient's SAO2 decreased to 80% with minimal activity with O2 at 9L HF for several minutes prior to activity. Patient performed pursed lip breathing for recovery. Patient does require several minutes to recover. PT [place] Goals [place] Goals PT Alf Goals Time Frame: Jun 13, 2022 Roll Left & Right (QC): 6 Sit to Lying (QC): 6 Lying-Sitting on Side/Bed(QC): 6 Sit to Stand (QC): 6 Chair/Vpj-cm-Tmknu Xfer(QC): 6 Walk 10 feet (QC): 4 PT Plan Treatment/Plan Treatment Plan: Continue Plan of Care Treatment Plan: Education, Functional Activity Henry, Functional Strength, Gait, Safety, Therapeutic Exercise, Transfers Treatment Duration: Jun 13, 2022 Frequency: 6 times per week Estimated Hrs Per Day: .25 hour per day Patient and/or Family Agrees t: Yes Time Time In: 800 Time Out: 811 DATE: Jun 09, 2022 Total Billed Treatment Time: 11 Total Billed Treatment 1 visit FA 11 min KERRY MADRID PT Jun 09, 2022 09:07
[2022-06-09 11:12] VITALS: BP 116/76
--- NOTE | 2022-06-09 13:04 | Diagnostic Imaging Report ---
EXAMINATION: CHEST 1 VIEW, AP/PA ONLY. INDICATION: Hypoxia. COMPARISON: None available. FINDINGS: Heterogeneous reticular opacities are present throughout the lungs. No pleural effusion or pneumothorax. The heart is mildly enlarged. An IVC filter is noted in the upper abdomen. IMPRESSION: Coarse opacities throughout the lungs are likely due to chronic interstitial lung disease and/or emphysema. Superimposed edema or infection could be present in the appropriate setting. Dictated by: Dictated on workstation # [id number]
[2022-06-09] MEDS ORDERED: FURO-125 PO (14:57)
[2022-06-09] MEDS ORDERED: PRED10TA22 PO (14:57)
[2022-06-09 16:00] VITALS: BP 118/71
--- NOTE | 2022-06-09 16:11 | Occupational Ther Daily Note ---
OT Current Status-Daily Note Subjective Supine in bed, difficulty sustaining 02, RN increased to 10 liters for Theraflu Mental Status/Objective Patient Orientation: Person, Situation ADL-Treatment Therapy Code Descriptions/Definitions Functional [place] Measure: 0=Not Assessed/NA 4=Minimal Assistance 1=Total Assistance 5=Supervision or Setup 2=Maximal Assistance 6=Modified [place] 3=Moderate Assistance 7=Complete IndependenceSCALE: Activities may be completed with or without assistive devices. 3-Eenqpinrcx-gfyjuxx completes the activity by him/herself with no assistance fr om a helper. 5-Set-up or Clean-up Assistance-helper sets up or cleans up; patient completes activity. [place] assists only prior to or following the activity. 4-Supervision or Touching Assistance-helper provides verbal cues and/or touching/steadying and/or contact guard assistance as patient completes activity. Assistance may be provided throughout the activity or intermittently. 3-Partial/Moderate Assistance-helper does LESS THAN HALF the effort. [place] lifts, holds or supports trunk or limbs, but provides less than half the effort. 2-Substantial/Maximal Assistance-helper does MORE THAN HALF the effort. [place] lifts or holds trunk or limbs and provides more than half the effort. 4-Hyrtfbtkz-qrznyv does ALL the effort. Patient does none of the effort to complete the activity. Or, the assistance of 2 or more helpers is required for the patient to complete the activity. If activity was not attempted, code reason: 7-Patient Refused. 9-Not Applicable-not attempted and the patient did not perform the activity before the current illness, exacerbation or injury. 10-Not Attempted due to Environmental Limitations-(lack of equipment, weather restraints, etc.). 88-Not Attempted due to Medical Conditions or Safety Concerns. Eating (QC): 6 Oral Hygiene (QC): 5 Shower/Bathe Self (QC): 88 Upper Body Dressing (QC): 4 Lower Body Dressing (QC): 4 On/Off Footwear: 5 Toileting Hygiene (QC): 4 Toilet Transfer (QC): 4 Other Treatment UE exercises for functional reach, isometric exercise BUEs, PLB teaching, sit/stand intervals, requires rest periods 1+ minute for recovery w/ 02 10 liters NC Education OT Patient Education: Energy conservation, Progress toward Goal/Update tx plan, Purpose of tx/functional activities, Reviewed precautions, Rehab process, Safety issues, Transfer techniques, Use of adapted equipment Teaching Recipient: Patient, Family (2 nieces present) Teaching Methods: Demonstration, Discussion Response to Teaching: Verbalize Understanding, Unable to Comprehend, Reinforcement Needed OT Color Straining Bag Washer Goals Correction Goals Time Frame: Jun 20, 2022 Eating (QC): 6 Oral Hygiene (QC): 6 Toileting Hygiene (QC): 6 Shower/Bathe Self (QC): 6 Upper Body Dressing (QC): 6 Lower Body Dressing (QC): 6 On/Off Footwear (QC): 6 1=Demonstrate adherence to instructed precautions during ADL tasks. 2=Patient will verbalize/demonstrate understanding of assistive devices/modifications for ADL. 3=Patient will improve strength/tolerance for activity to enable patient to perform ADL's. OT Education/Plan Problem List/Assessment Assessment: Decreased Activ Tolerance, Decreased UE Strength, Impaired Coordination, Impaired Funct Balance, Impaired Self-Care Skills Discharge Recommendations Plan/Recommendations: Continue POC Therapy Discharge Recommendati: Post Acute OT Treatment Plan/Plan of Care Treatment,Training & Education: Yes Patient would benefit from OT for education, treatment and training to promote independence in ADL's, mobility, safety and/or upper extremity function for ADL's. Plan of Care: ADL Retraining, Caregiver Training, Concurrent Therapy, Functional Mobility, Group Exercise/Act as Ind, UE Funct Exercise/Act Treatment Duration: Jun 20, 2022 Frequency: 3 times per week (3-5 times per week) Estimated Hrs Per Day: .25 hour per day Agreement: Yes Rehab Potential: Fair Time Start Time: 10:38 Stop Time: 11:05 DATE: Jun 09, 2022 Total Time Billed (hr/min): 27 Billed Treatment Time 1 visit EX 2 27 min TEE MURRAY OT Jun 09, 2022 16:11
--- NOTE | 2022-06-09 17:40 | Progress Note - Hospitalist ---
Subjective HPI/CC On Admission Date Seen by Provider: Jun 09, 2022 Time Seen by Provider: 10:15 Patient is an 86-year-old female with past history of pulmonary fibrosis, multiple DVTs with IVC filter placement, long COVID who presented to the emergency department due to shortness of breath. She reports she had COVID 2 years ago and has suffered with respiratory symptoms since then which complicated her pulmonary fibrosis. She wears 4 L of oxygen at baseline. Over the past couple of weeks that she has noticed lower extremity edema and worsening shortness of breath. She decided to seek evaluation in the emergency room yesterday as it was not getting better. She was found to have an elevated BNP and findings concerning for CHF. She denies any history of CHF. She was admitted here for further cardiac work-up. She states that she has urinated quite a bit since receiving Lasix in the ER yesterday and just received Lasix this morning and feels like she has to urinate again. Subjective/Events-last exam She is still short of breath. She denies pain. We discussed hospice and she wants to further discuss. She also wants to talk to her about this and her code status. Objective Exam Vital Signs Vital Signs Date Time Temp Pulse Resp B/P (MAP) Pulse Ox O2 Delivery O2 Flow Rate FiO2 06/09/22 15:05 90 High Flow N/C 10.00 06/09/22 12:29 90 06/09/22 11:12 36.2 18 116/76 (89) 06/07/22 23:19 40 Capillary Refill : General Appearance: No Apparent Distress, Chronically ill Neck: Normal Inspection, Supple Respiratory: No Respiratory Distress Cardiovascular: Regular Rate, Rhythm, Systolic Murmur Gastrointestinal: Normal Bowel Sounds, Soft Extremity: Normal Inspection, Pedal Edema Neurologic/Psychiatric: Alert, Normal Mood/Affect Skin: Warm/Dry, Pallor Results/Procedures Lab Laboratory Tests 06/09/22 04:17 Patient resulted labs reviewed. Imaging: Reviewed Imaging Report Assessment/Plan Assessment and Plan Assess & Plan/Chief Complaint Goals of care discussion Poor prognosis Palliative care consulted Wants to discuss with her Likely home with hospice pHTN Pulmonary fibrosis Long COVID Acute on chronic respiratory failure with hypoxia Elevated troponin HLD CKD 3b Echo with severe pulmonary hypertension Lasix Steroids MAT protocol Pulmonary following Cardiology following Chronic anticoagulatioin H/o of DVT INR therapeutic Continue Warfarin DVT ppx: already receiving therapeutic anticoagulation Diagnosis/Problems Diagnosis/Problems (1) Goals of care, counseling/discussion Status: Acute (2) Poor prognosis Status: Acute (3) Pulmonary hypertension Status: Acute (4) Pulmonary fibrosis Status: Acute (5) Long COVID Status: Acute (6) Acute on chronic respiratory failure with hypoxia Status: Acute (7) Elevated troponin Status: Acute (8) CHF (congestive heart failure) Status: Acute (9) Anticoagulated on warfarin Status: Chronic (10) History of DVT (deep vein thrombosis) Status: Chronic ELENO HENDRIX MD Jun 09, 2022 17:40
[2022-06-09] MEDS: warFARin 3 MG (COUMADIN) TAB PO SCH (17:43)
[2022-06-09 20:00] VITALS: BP 110/69
[2022-06-09] MEDS: AtorvaSTATin TABLET 10 MG TABLET PO SCH (21:10)
[2022-06-10] VITALS: BP 104/68
[2022-06-10] MEDS: RT-ALBUTEROL SULF 2.5 MG/3 ML PRE-MIX VIAL INH SCH ×3 (02:20→11:19)
[2022-06-10 04:00] VITALS: BP 106/59
[2022-06-10 04:35] LABS: HEMATOCRIT 43 % (35-52); HEMOGLOBIN 13.8 g/dL (11.5-16.0); MEAN CORPUSCULAR HEMOGLOBIN 32 pg (25-34); MEAN CORPUSCULAR HGB CONC 32 g/dL (32-36); MEAN CORPUSCULAR VOLUME 99 fL (80-99); MEAN PLATELET VOLUME 10.6 fL (9.0-12.2); PLATELET COUNT 176 10^3/uL (130-400); WHITE BLOOD COUNT 10.7 10^3/uL (4.3-11.0)
[2022-06-10 04:45] LABS: POTASSIUM 4.4 MMOL/L (3.6-5.0)
[2022-06-10 04:46] LABS: CALCIUM 8.2 MG/DL (8.5-10.1)
[2022-06-10 04:50] LABS: CREATININE SERUM 1.51 MG/DL (0.60-1.30)
[2022-06-10] MEDS: predniSONE 20 MG TAB PO SCH (06:37)
[2022-06-10 07:59] VITALS: BP 113/68
--- NOTE | 2022-06-10 08:50 | Physical Therapy Daily Note ---
PT Daily Note-Current Subjective Pt. agrees to Rx but states, "Im going home today" Pt. states she has O2 at home and will go home on 10 L O2 with help. Pain Location: No Pain Reported Section J - Health Conditions 1. Rarely or not at all 2. Occasionally 3. Frequently 4. Almost constantly 8. Unable to answer Pain Effect on Sleep: 1 Pain Interference with Therapy: 1 Pain Interference w/Day-to-Day: 1 Mental Status Patient Orientation: Normal For Age Attachments: Oxygen (10L), Other-See Comments (sat mon, telemetry, BP cuff) Transfers SCALE: Activities may be completed with or without assistive devices. 3-Mkbnjstzoq-xwyuyue completes the activity by him/herself with no assistance from a helper. 5-Set-up or Clean-up Assistance-helper sets up or cleans up; patient completes activity. [place] assists only prior to or following the activity. 4-Supervision or Touching Assistance-helper provides verbal cues and/or touching/steadying and/or contact guard assistance as patient completes activity. Assistance may be provided throughout the activity or intermittently. 3-Partial/Moderate Assistance-helper does LESS THAN HALF the effort. [place] lifts, holds or supports trunk or limbs, but provides less than half the effort. 2-Substantial/Maximal Assistance-helper does MORE THAN HALF the effort. [place] lifts or holds trunk or limbs and provides more than half the effort. 9-Lcjnktlos-ezrwti does ALL the effort. Patient does none of the effort to complete the activity. Or, the assistance of 2 or more helpers is required for the patient to complete the activity. If activity was not attempted, code reason: 7-Patient Refused. 9-Not Applicable-not attempted and the patient did not perform the activity before the current illness, exacerbation or injury. 10-Not Attempted due to Environmental Limitations-(lack of equipment, weather restraints, etc.). 88-Not Attempted due to Medical Conditions or Safety Concerns. Roll Left & Right (QC): 6 Lying to Sitting/Side of Bed(Q: 6 Sit to Stand (QC): 6 Chair/Ihj-my-Yiast Xfer(QC): 4 Gait Training Does the Patient Walk?: Yes Gait Assistive Device: FWW 7 ft with O2 sats dropping to 80% ,HR 110 . taking several minutes to recover to 85% but not above during 6 min monitoring by this PIECE MAKER Exercises Supine Ex: Ankle pumps, Rolling, Heel Slides, Straight leg raise, Hip abd/add Supine Reps: 10 Seated Therapy Exercises: Ankle pumps, Long arc quads, Hip flexion Seated Reps: 12 Treatments bed mob, TRF, short gait per tolerance, seated and sup LE ex, up in recliner after Rx with lugo at hand and O2 insitu etc, brkfst in front of pt Assessment Current Status: Fair Progress O2 dependent PT Halfway Goals Home Health Care Respiratory Therapist Goals PT Home Health Care Respiratory Therapist Goals Time Frame: Jun 13, 2022 Roll Left & Right (QC): 6 Sit to Lying (QC): 6 Lying-Sitting on Side/Bed(QC): 6 Sit to Stand (QC): 6 Chair/Bip-tx-Klqvr Xfer(QC): 6 Walk 10 feet (QC): 4 PT Plan Treatment/Plan Treatment Plan: Continue Plan of Care Treatment Plan: Education, Functional Activity Henry, Functional Strength, Gait, Safety, Therapeutic Exercise, Transfers Treatment Duration: Jun 13, 2022 Frequency: 6 times per week Estimated Hrs Per Day: .25 hour per day Patient and/or Family Agrees t: Yes Safety Risks/Education Patient Education: Gait Training, Transfer Techniques, Correct Positioning, Disease Process, Safety Issues Teaching Recipient: Patient Teaching Methods: Demonstration, Discussion Response to Teaching: Verbalize Understanding, Return Demonstration, Reinforcement Needed Time Time In: 820 Time Out: 843 DATE: Jun 10, 2022 Total Billed Treatment Time: 23 Total Billed Treatment 1,FA14,EX9 CRISTI DEAN PIECE MAKER Jun 10, 2022 08:50
[2022-06-10] MEDS ORDERED: FUROSEMIDE 40 MG (LASIX) TAB PO SCH (09:00)
[2022-06-10 10:13] VITALS: BP 113/68
--- NOTE | 2022-06-10 10:48 | Cardiology Progress Note ---
Subjective Date Seen by Provider: Jun 10, 2022 Time Seen by Provider: 08:50 Subjective/Events-last exam Patient sitting up in chair, no new complaints. Objective-Cardiology Exam Last Set of Vital Signs Vital Signs 06/07/22 06/10/22 23:19 10:13 Temp 36.3 Pulse 76 Resp 20 B/P (MAP) 113/68 Pulse Ox 92 O2 Delivery High Flow N/C O2 Flow Rate 10.00 FiO2 40 I&O Intake and Output 06/10/22 00:00 Intake Total 1120 ml Output Total 2250 ml Balance -1130 ml Intake Oral 1120 ml Output Urine Total 2250 ml General: Alert, Oriented X3 Neck: Supple Lungs: Other (diminished breath sounds bibasilarly) Heart: Regular Rate Abdomen: Normal Bowel Sounds, Soft Neuro: Normal Speech, Cranial Nerves 3-12 NL Psych/Mental Status: Mental Status NL, Mood NL Results Lab Laboratory Tests 06/10/22 04:17 A/P-Cardiology Admission Diagnosis Shortness of breath Pulmonary fibrosis PAF Assessment/Plan Shortness of breath, multifactorial Cor pulmonale and severe pulmonary hypertension of undetermined etiology 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 H/o PAF, on warfarin anticoag. INR therapeutic Minimal troponin elevation, likely type 2 [place] due to transient hypoxia MADY WARD Jun 10, 2022 10:48
--- NOTE | 2022-06-10 11:13 | Discharge Summary ---
Discharge Summary Hospital Course Problems/Dx: (1) Goals of care, counseling/discussion Status: Acute (2) Poor prognosis Status: Acute (3) Pulmonary hypertension Status: Acute (4) Pulmonary fibrosis Status: Acute (5) Long COVID Status: Acute (6) Acute on chronic respiratory failure with hypoxia Status: Acute (7) Elevated troponin Status: Acute (8) CHF (congestive heart failure) Status: Acute (9) Anticoagulated on warfarin Status: Chronic (10) History of DVT (deep vein thrombosis) Status: Chronic Hospital Course Date of Admission: Jun 05, 2022 at 17:45 Admission Diagnosis : Heart failure Family Physician/Provider: Date of Discharge: 06/10/22 Discharge Diagnosis: Pulmonary fibrosis, pulmonary hypertension, acute on chronic respiratory failure with hypoxia, goals of care discussion Hospital Course: Loren Maria is an 86 year old female with PMH pulmonary fibrosis, pulmonary hypertension, long COVID, chronic respiratory failure with hypoxia, who presented with shortness of breath and was admitted with presumed new onset heart failure. She was diuresed but her oxygen requirement did not improve. She has CKD and her kidney function worsened with diuresis. She was also given steroids for possible exacerbation of pulmonary fibrosis. Cardiology and Pulmonology were consulted and assisted with her care. Palliative care was also consulted and she elected to pursue hospice care at home with [facility]. She was discharged home in poor condition. Labs and Pending Lab Test: Laboratory Tests 06/10/22 04:17: White Blood Count 10.7, Red Blood Count 4.32, Hemoglobin 13.8, Hematocrit 43, Mean Corpuscular Volume 99, Mean Corpuscular Hemoglobin 32, Mean Corpuscular Hemoglobin Concent 32, Red Cell Distribution Width 13.9, Platelet Count 176, Mean Platelet Volume 10.6, Sodium Level 145, Potassium Level 4.4, Chloride Level 106, Carbon Dioxide Level 27, Anion Gap 12, Blood Urea Nitrogen 43H, Creatinine 1.51H, Estimat Glomerular Filtration Rate 33, BUN/Creatinine Ratio 28, Glucose Level 169H, Calcium Level 8.2L Home Meds Active Lasix (Furosemide) 20 Mg Tablet 20 Mg PO DAILY 30 Days Prednisone 10 Mg Tab.ds.pk 10 Mg PO DAILY Take 6 tabs(60mg)daily,decrease by 1 tab(10mg)every other day. Reported Icaps Areds2 Softgel (Vitc/E/Zn/Copper/Lutein/Zeaxan) 250 Mg-200 Capsule 1 Each PO 1200 Pravastatin Sodium 20 Mg Tablet 20 Mg PO HS Warfarin Sodium 3 Mg Tablet 3 Mg PO [place],,,,SA @1999 Warfarin Sodium 5 Mg Tablet 5 Mg PO WED @1999 Atenolol 50 Mg Tablet 12.5 Mg PO DAILY TAKES (50MG) TAB Assessment/Pt Instructions Discharged home on hospice Discharge Planning: >30 minutes discharge planning Discharge Instructions Discharge Diet: No Restrictions Activity as Tolerated: Yes Consultations Cardiology, Pulmonology Discharge Physical Examination Vital Signs Vital Signs Date Time Temp Pulse Resp B/P (MAP) Pulse Ox O2 Delivery O2 Flow Rate FiO2 06/10/22 10:13 36.3 76 20 113/68 92 High Flow N/C 10.00 06/07/22 23:19 40 General Appearance: No Apparent Distress, Chronically ill Respiratory: No Respiratory Distress, Decreased Breath Sounds Cardiovascular: Regular Rate, Rhythm, No Murmur Gastrointestinal: Normal Bowel Sounds, Soft Extremity: Normal Inspection, No Pedal Edema Skin: Warm/Dry, Pallor Neurologic/Psychiatric: Alert, Motor Weakness Allergies: Coded Allergies: aspirin (Verified Allergy, Mild, EDEMA, 06/09/22) niacin (Verified Allergy, Mild, REDNESS, 06/09/22) Penicillins (Verified Allergy, Unknown, 06/05/22) Uncoded Allergies: NIACIN PREPARATIONS (Allergy, Unknown, 06/09/22) Discharge Summary Date of Admission Jun 05, 2022 at 17:45 Date of Discharge Discharge Date: Jun 10, 2022 Discharge Time: 12:00 Admission Diagnosis Preseumed new onset HF Consults/Procedures Consulations Cardiology, Pulmonology Comfort Measures/ End of Life Care: Hospice Care (Home) Discharge Diagnosis Goals of care discussion Poor prognosis pHTN Pulmonary fibrosis Long COVID Acute on chronic respiratory failure with hypoxia Elevated troponin HLD CKD 3b Chronic anticoagulatioin H/o of DVT (1) Goals of care, counseling/discussion Status: Acute (2) Poor prognosis Status: Acute (3) Pulmonary hypertension Status: Acute (4) Pulmonary fibrosis Status: Acute (5) Long COVID Status: Acute (6) Acute on chronic respiratory failure with hypoxia Status: Acute (7) Elevated troponin Status: Acute (8) CHF (congestive heart failure) Status: Acute (9) Anticoagulated on warfarin Status: Chronic (10) History of DVT (deep vein thrombosis) Status: Chronic ELENO HENDRIX MD Jun 10, 2022 11:13
--- NOTE | 2022-06-10 11:25 | Occupational Ther Daily Note ---
OT Current Status-Daily Note Subjective Resting, alone in room, Mental Status/Objective Attachments: Oxygen, Telemetry ADL-Treatment Patient reports she is going home today with hospice, OT offered to assist in getting dressed, patient has robe only, slipper river transportation worker socks and is expected to return with possibly pants and a coat and shoes. Therapy Code Descriptions/Definitions Functional [place] Measure: 0=Not Assessed/NA 4=Minimal Assistance 1=Total Assistance 5=Supervision or Setup 2=Maximal Assistance 6=Modified [place] 3=Moderate Assistance 7=Complete IndependenceSCALE: Activities may be completed with or without assistive devices. 5-Oivskzjzxp-tbkoydg completes the activity by him/herself with no assistance from a helper. 5-Set-up or Clean-up Assistance-helper sets up or cleans up; patient completes activity. [place] assists only prior to or following the activity. 4-Supervision or Touching Assistance-helper provides verbal cues and/or touching/steadying and/or contact guard assistance as patient completes activity. Assistance may be provided throughout the activity or intermittently. 3-Partial/Moderate Assistance-helper does LESS THAN HALF the effort. [place] lifts, holds or supports trunk or limbs, but provides less than half the effort. 2-Substantial/Maximal Assistance-helper does MORE THAN HALF the effort. [place] lifts or holds trunk or limbs and provides more than half the effort. 0-Jkwzajlvs-ixbjqh does ALL the effort. Patient does none of the effort to complete the activity. Or, the assistance of 2 or more helpers is required for the patient to complete the activity. If activity was not attempted, code reason: 7-Patient Refused. 9-Not Applicable-not attempted and the patient did not perform the activity before the current illness, exacerbation or injury. 10-Not Attempted due to Environmental Limitations-(lack of equipment, weather restraints, etc.). 88-Not Attempted due to Medical Conditions or Safety Concerns. Eating (QC): 6 Oral Hygiene (QC): 6 Shower/Bathe Self (QC): 88 Upper Body Dressing (QC): 4 Lower Body Dressing (QC): 4 On/Off Footwear: 4 Toileting Hygiene (QC): 7 (declined when offered assistance) Toilet Transfer (QC): 7 (deeclined when offerred assistance) Repositioning and functional reach as minimal exertion and 02 lowers to 80% taking several minutes to recover to 85% o2 adjusted to 10 liters for therapy per nursing Education OT Patient Education: Correct positioning, Energy conservation, Modified ADL techniques, Progress toward Goal/Update tx plan, Purpose of tx/functional activities, Reviewed precautions, Rehab process, Safety issues, Transfer techniques, Use of adapted equipment Teaching Recipient: Patient Teaching Methods: Demonstration, Discussion Response to Teaching: Verbalize Understanding, Return Demonstration OT Usp Goals Dictaphone Mechanic Goals Time Frame: Jun 20, 2022 Eating (QC): 6 Oral Hygiene (QC): 6 Toileting Hygiene (QC): 6 Shower/Bathe Self (QC): 6 Upper Body Dressing (QC): 6 Lower Body Dressing (QC): 6 On/Off Footwear (QC): 6 1=Demonstrate adherence to instructed precautions during ADL tasks. 2=Patient will verbalize/demonstrate understanding of assistive devices/modifications for ADL. 3=Patient will improve strength/tolerance for activity to enable patient to perform ADL's. OT Education/Plan Discharge Recommendations Plan/Recommendations: Discontinue OT Treatment Plan/Plan of Care Patient would benefit from OT for education, treatment and training to promote independence in ADL's, mobility, safety and/or upper extremity function for ADL's. Plan of Care: ADL Retraining, Caregiver Training, Concurrent Therapy, Functional Mobility, Group Exercise/Act as Ind, UE Funct Exercise/Act Treatment Duration: Jun 20, 2022 Frequency: 3 times per week (3-5 times per week) Estimated Hrs Per Day: .25 hour per day Agreement: Yes Rehab Potential: Fair Remain sitting up w/ robe, bed tray table and call light in reach, all needs met Time Start Time: 10:18 Stop Time: 10:26 DATE: Jun 10, 2022 Total Time Billed (hr/min): 8 Billed Treatment Time 1 visit FA 1 8 min TEE MURRAY OT Jun 10, 2022 11:25
--- NOTE | 2022-06-11 14:07 | Physician Query Clarification ---
PQ-CHF Specificity Admission Date: Jun 05, 2022 at 17:45 Discharge Date: Jun 10, 2022 at 11:30 Dr. Oliva, The medical record reflects the following clinical scenario: History/Risk Factors: CHF, Pulmonary fibrosis, emphysema Clinical Findings: EF 70-75% systolic function is reduced per Echol Treatment: Lasix 40 mg IVP Question: Can you further specify the acuity &/or type of CHF per the clinical indicators above? Please document a response in the Progress Notes or Discharge Summary. 1. Acuity: Acute, Chronic or Acute on Chronic 2. Type: Systolic, Diastolic or Systolic & Diastolic 3. Unspecified: CHF cannot be further specified regarding type or acuity 4. Other, with explanation of clinical findings 5. Clinically undetermined, no explanation for clinical findings In responding to this query, please exercise your independent professional judgment. The purpose of this communication is to more accurately reflect the c omplexity of your patients condition. The fact that a question is asked does not imply that any particular answer is desired or expected. Thank you for your timely response to this clarification. Requestors name: Te THIS PHYSICIAN QUERY FORM IS A PERMANENT PART OF THE MEDICAL RECORD TE SOMMERS Jun 11, 2022 14:07
--- NOTE | 2022-06-11 14:11 | Physician Query Clarification ---
PQ-Further Specificity Admission/Discharge Admission Date: Jun 05, 2022 at 17:45 Discharge Date: Jun 10, 2022 at 11:30 Dr. Hendrix, The medical record reflects the following clinical scenario: History/Risk Factors: CHF, pulmonary fibrosis, emphysema Clinical Findings: Coarse opacities throughout the lungs are likely due to chronic interstitial lung disease and/or emphysema. Treatment: Solu-medrol 62.5 mg IVP, Prednisone 40 mg PO Question: Can you further specify the type of emphysema per the clinical indicators above? Please document a response in the Progress Notes or Discharge Summary. 1. interstitial emphysema 2. emphysema not further specified 3. Other, with explanation of the clinical findings. 4. Clinically undetermined, no explanation for the clinical findings. PHYSICIAN RESPONSE Can you specify per above: Other, explanation/clinical finding Explanation/Clinical Findings Not emphysema, pulmonary fibrosis In responding to this query, please exercise your independent professional judgment. The purpose of this communication is to more accurately reflect the complexity of your patients condition. The fact that a question is asked does not imply that any particular answer is desired or expected. Thank you for your timely response to this clarification. Requestors name: Te THIS PHYSICIAN QUERY FORM IS A PERMANENT PART OF THE MEDICAL RECORD TE SOMMERS Jun 11, 2022 14:11 ELENO HENDRIX MD Jun 11, 2022 16:13
--- NOTE | 2022-06-11 14:18 | Physician Query Clarification ---
TE SOMMERS 06/11/22 1418: [id number] Principal Diagnosis Principal Diagnosis Document Diagnosis QUESTION: Please specify the condition(s) that was chiefly responsible for oc casioning the admission to the hospital after study/evaluation based on your medical judgment. Clinical Indicators/Findings On Admit/Eval/Treatment: Admit with [facility] pulmonary fibrosis, pulmonary hypertension, long COVID, chronic respiratory failure with hypoxia, who presented with shortness of breath and was admitted with presumed new onset heart failure. She was diuresed but her oxygen requirement did not improve. She has CKD and her kidney unction worsened with diuresis. She was also given steroids for possible exacerbation of pulmonary fibrosis. Echo - EF 70-75% systolic function is reduced Lasix 40 mg IVP CXR - Coarse opacities throughout the lungs are likely due to chronic interstitial lung disease and/or emphysema. Solu-medrol 62.5 IVP, Prednisone PO 40 mg Adjuster Note Adjuster Note In responding to this query, please exercise your independent professional judgment. The purpose of this communication is to more accurately reflect the complexity of your patients condition. The fact that a question is asked does not imply that any particular answer is desired or expected. Thank you for your timely response to this clarification. Requestors name: Te THIS PHYSICIAN QUERY FORM IS A PERMANENT PART OF THE MEDICAL RECORD ELENO HENDRIX MD 06/11/22 1619: [id number] Principal Diagnosis Question Chief Reason for Admission Aft: Acute on chronic respiratory failure with hypoxia due to cor pulmonale secondary to pulmonary fibrosis TE SOMMERS Jun 11, 2022 14:18 ELENO HENDRIX MD Jun 11, 2022 16:19
== END 2022-06-10 11:30 | disposition hospice, home (50) | DRG 196 ==
LOC: CSD 17:45
PROVIDERS: ADMIT Family Medicine; ATTEND Internal Medicine
PROC: 5A0935A Assistance with Respiratory Ventilation, Less than 24 Consecutive Hours, High Flow/Velocity Cannula (ICD-10-PCS; principal; 2022-06-05)
DX: J84.10 Pulmonary fibrosis, unspecified (principal); I21.A1 Myocardial infarction type 2; J96.21 Acute and chronic respiratory failure with hypoxia; I27.81 Cor pulmonale (chronic); I50.9 Heart failure, unspecified; U09.9 Post COVID-19 condition, unspecified; I27.29 Other secondary pulmonary hypertension; I48.0 Paroxysmal atrial fibrillation; N18.32 Chronic kidney disease, stage 3b; H54.7 Unspecified visual loss; Z86.718 Personal history of other venous thrombosis and embolism; Z79.01 Long term (current) use of anticoagulants; Z99.81 Dependence on supplemental oxygen; Z88.0 Allergy status to penicillin
CPT/HCPCS: 36415; 71045; 80048; 82040; 83735; 84100; 84484; 85027; 85379; 85610; 93306; 93308; 94640; 94664; 94760; 94761